=== PATIENT | female | born 1950 | race Hispanic/Latino ===

== ENCOUNTER → 2019-07-03 | Outpatient (CLI) | payer OTHER ==
[~2019-07-03] MED LIST: IOHEXOL-350 75 ML VIAL IV ONE
[2019-07-03 11:07] LABS: CREATININE 0.7 mg/dL (0.5-1.5)
== END | disposition home or self-care (01) ==
LOC: RAH 09:54
PROVIDERS: ATTEND Internal Medicine
DX: R19.00 Intra-abdominal and pelvic swelling, mass and lump, unspecified site (principal); K57.30 Diverticulosis of large intestine without perforation or abscess without bleeding; I70.0 Atherosclerosis of aorta
CPT/HCPCS: 36415; 74178; 80048; Q9967

== ENCOUNTER → 2025-01-29 | Outpatient (CLI) | payer OTHER ==
--- NOTE | 2025-01-29 15:14 | HMCIMG ---
Exam Type: US ARTERIAL BILAT LOW EXT DUPL Clinical Information: TYPE 2 DM Comparison: None Findings: Diffuse bilateral plaque is identified. There are normal triphasic waveforms of the right common femoral artery through the superficial femoral artery, with a focus of distal superficial femoral artery stenosis. In addition, the left common femoral artery through the proximal popliteal artery also demonstrate triphasic waveforms. There are biphasic waveforms of the right popliteal artery, left distal popliteal artery consistent with moderate nonocclusive hemodynamically significant disease. There are monophasic abnormal waveforms of the right runoff, left runoff. consistent with severe nonocclusive disease. IMPRESSION: Peripheral vascular disease as noted.
== END | disposition home or self-care (01) ==
LOC: RAH 14:00
PROVIDERS: ATTEND Internal Medicine
DX: I73.9 Peripheral vascular disease, unspecified (principal); I70.90 Unspecified atherosclerosis; D65 Disseminated intravascular coagulation [defibrination syndrome]; E11.51 Type 2 diabetes mellitus with diabetic peripheral angiopathy without gangrene
CPT/HCPCS: 93925

== ENCOUNTER → 2025-03-02 | Outpatient (CLI) | payer OTHER ==
--- NOTE | 2025-03-02 10:48 | HMCIMG ---
US ABDOMINAL COMPLETE HISTORY: Elevated liver enzymes COMPARISON: None TECHNIQUE: Multiple transverse and longitudinal ultrasound images of the abdomen were obtained. FINDINGS: Atherosclerotic changes of the abdominal aorta is seen. Inferior vena cava is not well visualized. Liver measures 16.1 cm. Left hepatic lobe is not well visualized. The visualized portion of the pancreas is within normal limits. Liver is echogenic consistent with liver parenchymal disease. No gallstone is seen. Common duct measures 5 mm. No evidence of gallbladder wall thickening is seen. Both kidneys are seen. Right kidney measures 8.8 x 3.4 x 3.3 cm. Left kidney measures 9.4 x 4.3 x 3.6 cm. No hydronephrosis is seen of the both kidneys. The spleen is grossly unremarkable. IMPRESSION: 1. No gallstone or ductal dilatation is seen. 2. No hydronephrosis is seen.
== END | disposition home or self-care (01) ==
LOC: RAH 07:31
PROVIDERS: ATTEND Internal Medicine
DX: R74.8 Abnormal levels of other serum enzymes (principal); R79.89 Other specified abnormal findings of blood chemistry; I70.0 Atherosclerosis of aorta
CPT/HCPCS: 76700